=== PATIENT | female | born 1975 | race Caucasian/White ===

== ENCOUNTER → 2018-05-19 | Day surgery (SDC) | payer BC ==
[2018-04-08 08:20] VITALS: Ht 171.5 cm; Wt 86.4 kg
[~2018-05-19] VITALS: Ht 171.5 cm; Wt 86.4 kg
[~2018-05-19] MED LIST: ATROPINE SULFATE 0.1 MG/ML 5ML SYR IV PRN; ESCI1TAB10 PO; EpHEDrine SULFATE INJ 50 MG/ML AMP IV PRN; FENTANYL CITRATE INJ 50 MCG/1 ML 2 ML VIAL IV PRN; KLN/5 PO; LACTATED RINGER'S 1000ML 1,000 ML IV SCH; ONDANSETRON INJ 2 MG/ML 2 ML VIAL IV PRN; TOPI25TA99 PO; ZOLP5TAB PO
== END | disposition home or self-care (01) ==
LOC: EDSTATUS 07:00 → C.PAT 16:09
PROVIDERS: ATTEND Obstetrics & Gynecology
DX: N93.9 Abnormal uterine and vaginal bleeding, unspecified (principal); Z53.9 Procedure and treatment not carried out, unspecified reason